=== PATIENT | male | born 1980 | race Caucasian/White ===

== ENCOUNTER 2017-07-02 00:46 | Emergency (ER) | payer SELFPAY ==
[~2017-07-02] VITALS: Ht 180.3 cm; Wt 72.6 kg
[2017-07-02] MEDS ORDERED: DEXAMETHASONE SOD PHOS 10 MG/1 ML VIAL INJ STA (01:04)
[2017-07-02 01:05] VITALS: BP 130/74
== END 2017-07-02 01:55 | disposition home or self-care (01) ==
LOC: ER 00:46
DX: L23.7 Allergic contact dermatitis due to plants, except food (principal)
CPT/HCPCS: 99282; J1100

== ENCOUNTER 2017-10-23 02:08 | Emergency (ER) | payer SELFPAY ==
[~2017-10-23] VITALS: Ht 180.3 cm; Wt 72.6 kg
--- OUTSIDE RECORDS SUMMARY | 2017-10-23 02:10 | XMS REPORT ---
Author Author [facility] Address Unknown Phone Unavailable Care Team Providers Care Respiratory Care Program Director Name Role Phone Unavailable Unavailable Problems This patient has no known problems. Allergies, Adverse Reactions, Alerts This patient has no known allergies or adverse reactions. Medications This patient has no known medications. Encounters Start Date/Time End Date/Time Encounter Type Admission Type Attending [facility] Facility Care Department Encounter ID 2016-08-24 00:00:00 2016-11-03 00:00:00 Outpatient [facility] [id number]
[2017-10-23] MEDS ORDERED: ACETAMINOPHEN 325 MG TAB PO ONE ×2 (02:15→03:30)
[2017-10-23] MEDS ORDERED: ALBUTEROL/IPRATROPIUM 3 ML NEB NEB ONE (02:15)
--- NOTE | 2017-10-23 03:57 | Diagnostic Imaging Report ---
CHEST 2 VIEWS, Technique: CHEST 2 VIEWS Comparison: None Clinical history: Fever, cough DISCUSSION: Normal cardiomediastinal silhouette and pleural spaces. Mild bibasilar peribronchial thickening/cuffing with consolidative right greater than left lower lobe and right middle lobe opacities. IMPRESSION: Multifocal pneumonia. Recommend 6-8 week follow-up. Signed by: Dr Dot Krishna MD on 10/23/2017 3:53 AM
[2017-10-23] MEDS ORDERED: AZITHROMYCIN 500MG/NS 250 ML 250 ML IV STA (03:59)
[2017-10-23] MEDS ORDERED: SODIUM CHLORIDE 0.9% 1000ML 1,000 ML IV ONE ×2 (04:00→06:30)
[2017-10-23] MEDS ORDERED: CEFTRIAXONE SOD 1 GM VIAL IV ONE (04:00)
[2017-10-23 04:27] LABS: BASOPHILS # (AUTO) 0.1 (0.0-0.1); BASOPHILS % 0.2 % (0.0-1.0); EOSINOPHILS # (AUTO) 0.1 (0.0-0.4); EOSINOPHILS % 0.2 % (0.0-6.0); HEMATOCRIT 37.3 % (38.2-49.6); HEMOGLOBIN 12.7 g/dL (14.0-18.0); LYMPHOCYTES # (AUTO) 1.7 (1.0-3.2); LYMPHOCYTES % 7.2 % (18.0-39.1); MEAN CORPUSCULAR HEMOGLOBIN 29.5 pg (28-32); MEAN CORPUSCULAR VOLUME 86.5 fL (81-99); MONOCYTES % 8.6 % (4.4-11.3); NEUTROPHILS # (AUTO) 19.5 (2.1-6.9); NEUTROPHILS % 83.1 % (38.7-80.0); PLATELET COUNT 317 x10e3/uL (140-360); RED BLOOD COUNT 4.31 x10e6/uL (4.3-5.7); RED CELL DISTRIBUTION WIDTH 11.8 % (11.7-14.4)
[2017-10-23 05:05] LABS: ALANINE AMINOTRANSFERASE 55 IU/L (0-55); ALBUMIN 2.7 g/dL (3.5-5.0); ALBUMIN/GLOBULIN RATIO 0.7 (0.8-2.0); ALKALINE PHOSPHATASE 68 IU/L (40-150); ANION GAP 12.4 mmol/L (8-16); BLOOD UREA NITROGEN 14 mg/dL (7-26); BUN/CREATININE RATIO 15 (6-25); CALCIUM 8.9 mg/dL (8.4-10.2); CARBON DIOXIDE 25 mmol/L (22-29); CHLORIDE 99 mmol/L (98-107); CREATININE, SERUM 0.94 mg/dL (0.72-1.25); EST GLOMERULAR FILTRATION RATE > 60 ML/MIN (60-); GLUCOSE 164 mg/dL (74-118); POTASSIUM 3.4 mmol/L (3.5-5.1); SODIUM 133 mmol/L (136-145)
[2017-10-23] MEDS ORDERED: SODIUM CHLORIDE 0.9% 1000ML 1,000 ML IV SCH (05:05)
[2017-10-23 05:14] LABS: LYMPHOCYTES % (MANUAL) 9 % (19-48); MONOCYTES % (MANUAL) 8 % (3.4-9.0); NEUTROPHILS % (MANUAL) 83 % (40-74); PLATELET ESTIMATE ADEQUATE; PLATELET MORPHOLOGY COMMENT NORMAL; RBC MORPHOLOGY COMMENT NORMAL
[2017-10-23] MEDS ORDERED: ACETAMINOPHEN 325 MG TAB PO PRN (05:15)
[2017-10-23] MEDS ORDERED: KCL 20MEQ/.9 SOD CHL 1,000 ML IV ONE (05:30)
[2017-10-23] MEDS: ALBUTEROL SULF 0.083% NEB SOLN 3 ML NEB NEB SCH ×5 (07:15→21:15)
[2017-10-23] MEDS: IPRATROPIUM BROMIDE 0.02% 2.5 ML NEB NEB SCH ×3 (07:15→18:00)
[2017-10-24] MEDS: IPRATROPIUM BROMIDE 0.02% 2.5 ML NEB NEB SCH
[2017-10-24] MEDS: ALBUTEROL SULF 0.083% NEB SOLN 3 ML NEB NEB SCH (01:15)
[2017-10-24] MEDS ORDERED: AZITHROMYCIN 500MG/SOD CHL 0.9% 250ML BAG IV SCH (05:00)
[2017-10-24] MEDS ORDERED: CEFTRIAXONE SOD 1 GM VIAL IV SCH (06:00)
== END 2017-10-23 11:30 | disposition left against medical advice (07) ==
LOC: ER 02:08 → ERHOLD 05:05 → UNDOADMIN 05:05
DX: J15.9 Unspecified bacterial pneumonia (principal); F17.200 Nicotine dependence, unspecified, uncomplicated
CPT/HCPCS: 36415; 71046; 80053; 83605; 85025; 87040; 94640 ×2; 99284; J0456; J0696; J7030